=== PATIENT | female | born 1995 | race Hispanic/Latino ===

== ENCOUNTER 2021-01-11 14:53 | Day surgery (SDC) | payer MEDICAID, OTHER, SELFPAY ==
[2021-01-11 15:29] VITALS: BMI 29.6
[2021-01-11 18:03] LABS: Fetal Membranes Rupture No Membranes Rupture (No Rupture)
== END 2021-01-11 20:26 | disposition home or self-care (01) ==
LOC: CSHLD/OP 14:53
PROVIDERS: ATTEND Obstetrics & Gynecology
DX: O36.8330 Maternal care for abnormalities of the fetal heart rate or rhythm, third trimester, not applicable or unspecified (principal); Z3A.37 37 weeks gestation of pregnancy; Z88.0 Allergy status to penicillin; Z79.899 Other long term (current) drug therapy
CPT/HCPCS: 84112; 87480; 87510; 87660; 99283

== ENCOUNTER 2022-03-24 12:59 | Inpatient (IN) | payer MEDICAID, SELFPAY ==
[2022-03-24 13:34] VITALS: BMI 30.9
[2022-03-24] MEDS ORDERED: Bupivacaine/Epinephrine 0.25% 30 ML VIAL ONE (16:10)
[2022-03-24] MEDS ORDERED: ePHEDrine Sulfate 50 MG/10 ML VIAL ONE (16:10)
[2022-03-24] MEDS ORDERED: hydrALAZINE 20 MG/ML VIAL SLOW IVP PRN (18:17)
[2022-03-24] MEDS ORDERED: Butorphanol Tartrate 1 MG/ML VIAL SLOW IVP PRN (18:17)
[2022-03-24] MEDS ORDERED: Promethazine HCl 25 MG/ML VIAL IM PRN ×2 (18:17→22:00)
[2022-03-24] MEDS ORDERED: Lidocaine 1% (PF) 30 ML VIAL SC PRN (18:17)
[2022-03-24] MEDS ORDERED: Ibuprofen 800 MG TAB PO PRN (18:17)
[2022-03-24] MEDS ORDERED: HYDROcodone/Acetaminophen 5/325 mg Tablet PO PRN (18:17)
[2022-03-24] MEDS ORDERED: Ondansetron PF 4 MG/2 ML Vial IVP PRN ×2 (18:17→22:00)
[2022-03-24] MEDS ORDERED: NS w/ Oxytocin 30 units 500 ML IV SCH ×2 (18:30)
[2022-03-24] MEDS: Lactated Ringer's 1,000 ML IV SCH ×2 (19:50→20:57)
[2022-03-24 20:57] LABS: Hemoglobin 10.1 g/dL (12.0-15.5); Mean Corpuscular HGB CONC 32.4 g/dL (32.0-36.0); Mean Corpuscular Hemoglobin 25.3 pg (27.0-33.0); Mean Platelet Volume 12.6 fl (7.4-10.4); Platelet Count 222 10x3/uL (150-450); RBC Distribution Width 14.4 % (11.5-14.5)
[2022-03-24] MEDS ORDERED: Fentanyl 2 mcg/Bup 0.1% Cadd 100 ML ONE (21:16)
[2022-03-24 21:28] LABS: HBSAg Index 0.15 S/CO (0-0.99); Hep B Surf Ag Non-Reactive S/CO (NonReactive)
[2022-03-24 21:29] LABS: Syphilis Antibody Nonreactive (Nonreactive); Syphilis Antibody Index 0.04 S/CO (<1.00 Non-Reactive)
[2022-03-24] MEDS ORDERED: diphenhydrAMINE 50 MG/ML VIAL IVP PRN (22:00)
[2022-03-24] MEDS ORDERED: Acetaminophen 325 MG TAB PO PRN (22:00)
[2022-03-24] MEDS ORDERED: ePHEDrine Sulfate 50 MG/10 ML VIAL SLOW IVP PRN (22:00)
[2022-03-24] MEDS ORDERED: Moisturizing Cream (Eucerin) 113 GM JAR TOP PRN (22:00)
[2022-03-24] MEDS ORDERED: Fentanyl 2 mcg/Bupivacaine 0.1% Cassette 100 ML EPIDURAL SCH (22:00)
[2022-03-24] MEDS ORDERED: Naloxone HCl 0.4 mg/ml Vial IVP PRN ×2 (22:00)
[2022-03-24] MEDS ORDERED: Lactated Ringer's 500 ML IV PRN (22:00)
[2022-03-24] MEDS ORDERED: Communication Order-Pharmacy FS SCH (22:00)
[2022-03-25] MEDS ORDERED: Measles/Mumps/Rubella 10 MCG/0.5 ML VIAL SC ONE (00:47)
[2022-03-25] MEDS ORDERED: diphenhydrAMINE 25 MG CAP PO PRN (00:47)
[2022-03-25] MEDS ORDERED: Boostrix 0.5 ML (Tdap) VIAL (>/=7 yrs of age) IM ONE (00:47)
[2022-03-25] MEDS ORDERED: Zolpidem Tartrate 5 MG TAB PO PRN (00:47)
[2022-03-25] MEDS ORDERED: NS w/ Oxytocin 30 units 500 ML IV SCH (00:47)
[2022-03-25] MEDS ORDERED: Promethazine HCl 25 MG/ML VIAL IM PRN (00:47)
[2022-03-25] MEDS ORDERED: Benzocaine-Menthol 82.5 ML CAN TOP PRN (00:47)
[2022-03-25] MEDS ORDERED: Milk Of Magnesia 30 ML UDCUP PO PRN (00:47)
[2022-03-25] MEDS ORDERED: Lanolin Ointment 7 GM TUBE TOP PRN (00:47)
[2022-03-25] MEDS ORDERED: Varicella virus, LIVE 0.5 ML VIAL SC ONE (00:47)
[2022-03-25] MEDS ORDERED: Methylergonovine 0.2 MG/ML VIAL IM PRN (00:47)
[2022-03-25] MEDS ORDERED: Bisacodyl 10 MG SUPP PR PRN (00:47)
[2022-03-25] MEDS ORDERED: Preparation H Ointment 28 GM TUBE PR PRN (00:47)
[2022-03-25] MEDS ORDERED: Ondansetron PF 4 MG/2 ML Vial IVP PRN (00:47)
[2022-03-25] MEDS ORDERED: hydrALAZINE 20 MG/ML VIAL SLOW IVP PRN (00:47)
[2022-03-25] MEDS ORDERED: Misoprostol 200 MCG TAB VAG PRN (00:47)
[2022-03-25 01:05] LABS: SARS-CoV-2 NAA Rapid Test Not Detected (NotDetected)
[2022-03-25 05:00] LABS: Hemoglobin 9.3 g/dL (12.0-15.5); Mean Corpuscular HGB CONC 32.5 g/dL (32.0-36.0); Mean Corpuscular Hemoglobin 25.5 pg (27.0-33.0); Mean Corpuscular Volume 78.6 fl (81.6-98.3); Mean Platelet Volume 12.8 fl (7.4-10.4); Platelet Count 189 10x3/uL (150-450); RBC Distribution Width 14.3 % (11.5-14.5); Red Blood Cell (RBC) Count 3.64 10x6/uL (3.90-5.03); White Blood Cell (WBC) Count 11.7 10x3/uL (3.5-10.5)
[2022-03-25] MEDS: Ibuprofen 800 MG TAB PO SCH ×3 (05:01→21:51)
[2022-03-25] MEDS: Docusate 100 MG CAP PO SCH ×2 (08:50→21:51)
[2022-03-25] MEDS: HYDROcodone/Acetaminophen 5/325 mg Tablet PO PRN (08:51)
[2022-03-25] MEDS: Ferrous Sulfate 325 MG TAB PO SCH ×2 (08:51→18:05)
[2022-03-25] MEDS: Prenatal Vitamin 1 TAB PO SCH (08:51)
[2022-03-25] MEDS ORDERED: Witch Hazel-Glycerin 1 EACH JAR TOP PRN (11:03)
[2022-03-26] MEDS: Ibuprofen 800 MG TAB PO SCH (05:18)
[2022-03-26] MEDS: HYDROcodone/Acetaminophen 5/325 mg Tablet PO PRN (08:13)
[2022-03-26] MEDS: Prenatal Vitamin 1 TAB PO SCH (08:13)
[2022-03-26] MEDS: Ferrous Sulfate 325 MG TAB PO SCH (08:13)
[2022-03-26] MEDS: Docusate 100 MG CAP PO SCH (08:14)
[2022-03-26 15:46] VITALS: BP 113/79; TEMP 97.9
== END 2022-03-26 13:00 | disposition home or self-care (01) | DRG 807 ==
LOC: CSHLD/OP 12:59 → CSHLD 21:11 → CSHPP 03-25 08:20
PROVIDERS: ADMIT Obstetrics & Gynecology; ATTEND Obstetrics & Gynecology
PROC: 10E0XZZ Delivery of Products of Conception, External Approach (ICD-10-PCS; principal; 2022-03-24)
PROC: 10907ZC Drainage of Amniotic Fluid, Therapeutic from Products of Conception, Via Natural or Artificial Opening (ICD-10-PCS; 2022-03-24)
PROC: 3E033VJ Introduction of Other Hormone into Peripheral Vein, Percutaneous Approach (ICD-10-PCS; 2022-03-24)
DX: O80 Encounter for full-term uncomplicated delivery (principal); Z37.0 Single live birth; Z88.0 Allergy status to penicillin; Z20.822 Contact with and (suspected) exposure to COVID-19; Z3A.39 39 weeks gestation of pregnancy
CPT/HCPCS: 36415; 51702; 85027; 86780; 86850; 86900; 86901; 87340; 99285; J2590; U0002